=== PATIENT | female | born 1965 | race Caucasian/White ===

== ENCOUNTER 2017-12-11 20:45 | Emergency (ER) | payer OTHER ==
[~2017-12-11] VITALS: Ht 162.6 cm; Wt 78.5 kg
[~2017-12-11 20:45] MED LIST: KEFLEX500 MG PO; LEVOXYL88 MCG
[2017-12-11] MEDS ORDERED: TRIAMTERENE/HCT1 CA1 PO (20:51)
[2017-12-11] MEDS ORDERED: CLONAZEPAM 0.50.5 M1 PO (20:52)
[2017-12-11 21:18] LABS: ABSOLUTE EOSINOPHILS 0.3 thou/uL (0.0-0.7); ABSOLUTE LYMPHOCYTES 2.9 thou/uL (0.8-5.3); ABSOLUTE MONOCYTES 0.5 thou/uL (0.0-1.2); ABSOLUTE NEUTROPHILS 4.9 thou/uL (1.6-8.1); BASOPHILS 0.5 %; EOSINOPHILS 3.3 %; HEMATOCRIT 39.2 % (37.0-47.0); HEMOGLOBIN 13.1 gm/dL (12.0-15.0); LYMPHOCYTES 34.1 %; MCH 29.3 pg (26.0-34.0); MCHC 33.3 g/dL (28.0-37.0); MONOCYTES 6.1 %; MPV 7.2 fl. (7.2-11.1); NUCLEATED RBCS 0 /100WBC; PLATELET COUNT* 252 thou/uL (150-400); RBC 4.45 mil/uL (4.20-5.00); RDW-CV 13.4 % (10.5-14.5); WBC 8.7 thou/uL (4.0-11.0)
[2017-12-11 21:25] LABS: CALCIUM 8.8 mg/dL (8.5-10.1); CREATININE 1.4 mg/dL (0.6-1.3); POTASSIUM 3.6 mmol/L (3.5-5.1)
[2017-12-11 21:30] LABS: ALBUMIN 3.7 g/dL (3.4-5.0); TOTAL BILIRUBIN 0.3 mg/dL (<0.1-1.0); TOTAL PROTEIN 7.2 g/dL (6.4-8.2)
[2017-12-11] MEDS ORDERED: EPIPEN0.3 MG/0.1 IM (22:28)
[2017-12-11] MEDS ORDERED: PREDNISONE 20 M20 M1 PO (22:29)
[2017-12-11 23:20] VITALS: BP 168/92
== END 2017-12-11 23:20 | disposition home or self-care (01) ==
LOC: M.ERS 20:45
PROVIDERS: Personal Emergency Response Attendant
DX: R06.2 Wheezing (principal); T78.1XXA Other adverse food reactions, not elsewhere classified, initial encounter; Z90.49 Acquired absence of other specified parts of digestive tract; X58.XXXA Exposure to other specified factors, initial encounter

== ENCOUNTER 2018-02-27 19:38 | Emergency (ER) | payer OTHER ==
[~2018-02-27] VITALS: Ht 162.6 cm; Wt 78.5 kg
[~2018-02-27 19:38] MED LIST changes: +CLONAZEPAM 0.50.5 M1 PO; +EPIPEN0.3 MG/0.1 IM; +PREDNISONE 20 M20 M1 PO; +TRIAMTERENE/HCT1 CA1 PO
[2018-02-27] MEDS ORDERED: SYNTHROID100 MC1 (19:49)
[2018-02-27] MEDS ORDERED: PEPCID20 MG PO (20:09)
[2018-02-27] MEDS ORDERED: EPIPEN 2-P0.3 MG/0.3 IM (20:09)
[2018-02-27] MEDS ORDERED: MEDROLDOSEPACK PO (20:09)
[2018-02-27 21:28] VITALS: BP 139/78
--- NOTE | 2018-02-28 11:45 | EKG ---
[place] [address] ELECTROCARDIOGRAM REPORT Name: BEN MCKEON Room: [facility]#: [id number] Admission: 02/27/18 Attend Phys: Discharge: 02/27/18 Date of : 61 Report #: [id number] THIS REPORT FOR: //name// [facility] ED Test Date: 2018-02-27 Test Time: 20:41:13 Pat Name: BEN MCKEON Department: Room: Gender: F Edi Coordinator: GLADIS : 1965 Requested By: Yolanda Padilla Order Number: [id number] MD: Brandon Aguayo Measurements Intervals [place] Rate: 60 P: 26 CO: 129 QRS: 28 QRSD: 109 T: 28 QT: 479 QTc: 479 Interpretive Statements Sinus rhythm Borderline prolonged QT interval No previous ECG available for comparison Electronically Signed On 02-28-2018 11:45:02 TELECOMM[employer]ICATION[employer] CONSULT[employer] by Brandon Aguayo [email or web address] <ELECTRONICALLY SIGNED> By: Brandon Aguayo MD, [facility] 02/28/18 1145 2041 2041 Brandon Aguayo MD, FACC /EPI
== END 2018-02-27 21:30 | disposition home or self-care (01) ==
LOC: M.ERS 19:38
DX: H02.844 Edema of left upper eyelid (principal); H02.841 Edema of right upper eyelid; T44.5X5A Adverse effect of predominantly beta-adrenoreceptor agonists, initial encounter; Z90.49 Acquired absence of other specified parts of digestive tract; Z90.710 Acquired absence of both cervix and uterus; Y92.89 Other specified places as the place of occurrence of the external cause